=== PATIENT | female | born 1945 | race Two or more races ===

== ENCOUNTER 2016-10-08 10:01 | Emergency (ER) | payer MEDICARE, OTHER ==
[~2016-10-08] VITALS: Ht 162.6 cm; Wt 66.7 kg
[2016-10-08] MEDS ORDERED: KEFLEX500 MG ORAL (10:32)
[2016-10-08 10:43] VITALS: BP 135/75
--- NOTE | 2016-10-08 13:20 | Emergency Room Report ---
History of Present Illness General Chief Complaint: Eye Problems Source: Patient Present Illness HPI 70-year-old female presents to ED for evaluation. Patient states there is some swelling of her right eyelid and redness to the surrounding area. Started yesterday. Pain is sharp, 7/10, nonradiating. Denies any photophobia or blurry vision. Denies any discharge. No other aggravating relieving factors. Denies any other associated symptoms Allergies: Uncoded Allergies: CODEINE,ASPIRIN, (Allergy, Unknown, 10/08/16) Patient History Past Medical History: GERD, psych hx Past Surgical History: none Pertinent Family History: none Social History: Denies: alcohol use, drug use, smoking Now: No Immunizations: UTD Reviewed Nursing Documentation: PMH: Agreed, PSxH: Agreed Nursing Documentation-PMH Past Medical History: No History, Except For Hx Cardiac Problems: Yes Hx Hypertension: No Hx Pacemaker: No - hypothroidism , left knee replacement,hysterectomy Hx Diabetes: No - pre dm Hx Cancer: No Hx Gastrointestinal Problems: Yes - gerd History Of Psychiatric Problem: Yes - Anxiety and depression Review of Systems All Other Systems: negative except mentioned in HPI Physical Exam Vital Signs Date Time Temp Pulse Resp B/P Pulse Ox O2 Delivery O2 Flow Rate FiO2 10/08/16 10:08 97.0 71 18 103/63 97 Room Air Sp02 EP Interpretation: reviewed, normal General Appearance: no apparent distress, alert, GCS 15, non-toxic Head: normocephalic Eyes: right eye lid inflammation - R lower eyelid erythematous/swollen, bilateral eye PERRL, bilateral eye normal inspection ENT: hearing grossly normal, normal pharynx, no angioedema, normal voice, TMs + canals normal Neck: normal inspection Respiratory: normal inspection Cardiovascular #1: normal inspection Gastrointestinal: normal inspection Rectal: deferred Genitourinary: no CVA tenderness Musculoskeletal: normal inspection Neurologic: alert, oriented x3, responsive, motor strength/tone normal, sensory intact, speech normal Psychiatric: normal inspection Skin: other - erythema/induration to R lower eyelid, extending towards R side of nose Lymphatic: normal inspection Medical Decision Making Diagnostic Impression: Primary Impression: Facial cellulitis ER Course Hospital Course 70-year-old female presents to ED with redness, swelling to side of face Differential diagnoses include: Cellulitis, dermatitis, insect bite, abscess Clinical course Patient placed on stretcher. After initial history, physical exam reveals an elderly female in no acute distress. On exam there is swelling and erythema to the right lower eyelid. There is extension of that erythema towards the right side of the nose. Consistent with cellulitis. no ocular involvement. Recommend warm compresses but we will treat with antibiotics Diagnosis - facial cellulitis stable and discharged to home with prescription for Keflex. Instructed to followup with PMD. Instructed return to ED if symptoms recur or worsen Chest X-Ray Diagnostic Results Chest X-Ray Ordered: No Last Vital Signs Date Time Temp Pulse Resp B/P Pulse Ox O2 Delivery O2 Flow Rate FiO2 10/08/16 10:45 85 16 145/75 98 Room Air 10/08/16 10:43 98.5 Status: improved Disposition: HOME, SELF-CARE Condition: Stable Scripts Cephalexin* (KEFLEX*) 500 Mg Capsule 500 MG ORAL Q6H, #28 CAP 0 Refills Prov: JERAD CHONG M.D. 10/08/16 Referrals: NON PHYSICIAN (PCP) Patient Instructions: Cellulitis, [id number] JERAD CHONG M.D. Oct 08, 2016 13:20
== END 2016-10-08 10:51 | disposition home or self-care (01) ==
LOC: EMR 10:39
DX: L03.211 Cellulitis of face (principal); H00.032 Abscess of right lower eyelid; Z88.6 Allergy status to analgesic agent
CPT/HCPCS: 99283

== ENCOUNTER 2020-01-06 09:51 | Inpatient (IN) | payer MEDICARE, OTHER ==
[~2020-01-06] VITALS: Ht 157.5 cm; Wt 66.0 kg
[~2020-01-06 09:51] MED LIST: DEXILANT30 MG PO; GLUCOPHAGE500 MG PO; JANUMET 50-5001 EACH PO; KEFLEX500 MG ORAL; LEXAPRO20 MG PO; LIPITOR80 MG PO; METOPRO; METOPROLOL TART25 MG PO; METROPOLOL; PREMARIN VAG CR45 GM PV; SYNTHROID50 MCG PO
[2020-01-06] MEDS ORDERED: FLOMAX0.4 MG ORAL (10:05)
[2020-01-06] MEDS ORDERED: CYMBALTA60 MG ORAL (10:05)
[2020-01-06] MEDS ORDERED: GABAPENTIN100 MG ORAL (10:05)
[2020-01-06] MEDS ORDERED: PANTOPRAZOLE SO40 MG ORAL (10:06)
[2020-01-06] MEDS ORDERED: SINGULAIR10 MG ORAL (10:06)
[2020-01-06] MEDS ORDERED: ALLEGRA-D 24 H1 EACH PO (10:08)
[2020-01-06 10:10] VITALS: BP 138/72
[2020-01-06 10:23] VITALS: BP 138/72
[2020-01-06] MEDS ORDERED: Morphine Sulfate 2mg/ml Inj(IV/IM USE ONLY) IVP ONE (10:45)
[2020-01-06] MEDS ORDERED: Ketorolac 30mg Inj IV ONE (10:45)
--- NOTE | 2020-01-06 10:51 | Emergency Room Report ---
History of Present Illness General Chief Complaint: Abdominal Pain Source: Patient Present Illness HPI Disclaimer: Please note that this report is being documented using [employer] technology. This can lead to erroneous entry secondary to incorrect interpretation by the dictating instrument. HPI: 74-year-old female history of diabetes, hypertension, presented from home due to right flank pain and hematuria. She states she has had abdominal pain with right flank pain for the past 24 hours or so. Associated with hematuria. This is a correction from triage she does not have hematochezia however blood in the urine. Associated with painful urination. She denies any fevers nausea or vomiting. She has no history of kidney stones. Pain is about 10 out of 10. PMH: Hypertension, diabetes, arthritis Allergies: Coded Allergies: ASPIRIN (Verified Allergy, Unknown, 05/05/17) CODEINE (Verified Allergy, Unknown, 05/05/17) Uncoded Allergies: CODEINE,ASPIRIN, (Allergy, Unknown, 10/08/16) COVID-19 Screening Contact w/high risk pt: No Experienced COVID-19 symptoms?: No COVID-19 Testing performed JOINT FINISHER: No Patient History Last Menstrual Period: na Reviewed Nursing Documentation: PMH: Agreed; PSxH: Agreed Nursing Documentation-PMH Past Medical History: No History, Except For Hx Cardiac Problems: Yes Hx Hypertension: No Hx Pacemaker: No - hypothroidism , left knee replacement,hysterectomy Hx Diabetes: No - pre dm Hx Cancer: No Hx Gastrointestinal Problems: Yes - gerd Review of Systems All Other Systems: negative except mentioned in HPI Physical Exam Vital Signs Date Time Temp Pulse Resp B/P (MAP) Pulse Ox O2 Delivery O2 Flow Rate FiO2 01/06/20 09:54 98.4 82 20 138/72 (94) 96 Room Air Sp02 EP Interpretation: reviewed, normal General Appearance: well appearing, no apparent distress Head: normocephalic, atraumatic Eyes: bilateral eye PERRL, bilateral eye EOMI ENT: hearing grossly normal, moist mucus membranes Neck: full range of motion, supple Respiratory: lungs clear, normal breath sounds, no rhonchi, no respiratory distress, no retraction, no wheezing Cardiovascular #1: normal peripheral pulses, regular rate, rhythm, no murmur Gastrointestinal: non tender, soft, non-distended, no guarding Genitourinary: CVA tenderness (R) Neurologic: alert, oriented x3, no focal defects Skin: normal color, warm/dry Medical Decision Making Diagnostic Impression: Primary Impression: Acute pyelonephritis ER Course MDM: Patient presents with right flank pain. Differential included not limited to kidney stone, pyelonephritis, UTI, colitis, diverticulitis to name a few Clinical course-IV inserted laboratory studies were sent, IV fluids given, CT scan ordered. Laboratory studies demonstrated mild leukocytosis. Urinalysis consistent with UTI. CT scan of the abdomen pelvis demonstrated right-sided hydronephrosis, but no obstructive stone noted. My plan at this point is to admit patient to medical floor for further treatment and observation IV antibiotics. Labs - Laboratory Tests Test 01/06/20 10:20 White Blood Count 11.3 K/UL (4.8-10.8) H Red Blood Count 4.02 M/UL (4.20-5.40) L Hemoglobin 12.4 G/DL (12.0-16.0) Hematocrit 35.6 % (37.0-47.0) L Mean Corpuscular Volume 89 FL (80-99) Mean Corpuscular Hemoglobin 30.9 PG (27.0-31.0) Mean Corpuscular Hemoglobin Concent 34.9 G/DL (32.0-36.0) Red Cell Distribution Width 12.1 % (11.6-14.8) Platelet Count 177 K/UL (150-450) Mean Platelet Volume 9.1 FL (6.5-10.1) Neutrophils (%) (Auto) 73.2 % (45.0-75.0) Lymphocytes (%) (Auto) 18.2 % (20.0-45.0) L Monocytes (%) (Auto) 7.9 % (1.0-10.0) Eosinophils (%) (Auto) 0.2 % (0.0-3.0) Basophils (%) (Auto) 0.4 % (0.0-2.0) Prothrombin Time 10.0 SEC (9.30-11.50) Prothrombin Time INR 0.9 (0.9-1.1) Activated Partial Thromboplast Time 26 SEC (23-33) Urine Color Red Urine Appearance Turbid Urine pH 7 (4.5-8.0) Urine Specific [place] 1.015 (1.005-1.035) Urine Protein 4+ (NEGATIVE) H Urine Glucose (UA) Negative (NEGATIVE) Urine Ketones Negative (NEGATIVE) Urine Blood 5+ (NEGATIVE) H Urine Nitrite Negative (NEGATIVE) Urine Bilirubin Negative (NEGATIVE) Urine Urobilinogen Normal MG/DL (0.0-1.0) Urine Leukocyte Esterase 3+ (NEGATIVE) H Urine RBC Tntc /HPF (0 - 2) H Urine WBC Tntc /HPF (0 - 2) H Urine Squamous Epithelial Cells Few /LPF (NONE/OCC) Urine Bacteria Few /HPF (NONE) Sodium Level 137 MMOL/L (136-145) Potassium Level 3.7 MMOL/L (3.5-5.1) Chloride Level 97 MMOL/L (98-107) L Carbon Dioxide Level 27 MMOL/L (21-32) Anion Gap 13 mmol/L (5-15) Blood Urea Nitrogen 11 mg/dL (7-18) Creatinine 0.6 MG/DL (0.55-1.30) Estimated Glomerular Filtration Rate > 60 mL/min (>60) Glucose Level 136 MG/DL (74-106) H Calcium Level 9.6 MG/DL (8.5-10.1) Total Bilirubin 0.3 MG/DL (0.2-1.0) Aspartate Amino Transferase (AST) 19 U/L (15-37) Alanine Aminotransferase (ALT) 25 U/L (12-78) Alkaline Phosphatase 46 U/L (46-116) Total Protein 8.5 G/DL (6.4-8.2) H Albumin 4.5 G/DL (3.4-5.0) Globulin 4.0 g/dL Albumin/Globulin Ratio 1.1 (1.0-2.7) Lipase 101 U/L (73-393) On reevaluation: Pain controlled Plan-admission to the medical floor Last Vital Signs Date Time Temp Pulse Resp B/P (MAP) Pulse Ox O2 Delivery O2 Flow Rate FiO2 01/06/20 09:54 98.4 82 20 138/72 (94) 96 Room Air Status: improved Disposition: ADMITTED INPATIENT Condition: Serious Referrals: NOT CHOSEN IPA/,REFERRING (PCP) Mendoza Alexandre M.D. Jan 06, 2020 10:51
[2020-01-06 10:52] LABS: APPEARANCE,URINE TURBID; BILIRUBIN, URINE NEGATIVE (NEGATIVE); GLUCOSE, URINE (UA) NEGATIVE (NEGATIVE); KETONES,URINE NEGATIVE (NEGATIVE); LEUKOCYTE ESTERASE ,URINE 3+ (NEGATIVE); NITRITE,URINE NEGATIVE (NEGATIVE); PH,URINE 7 (4.5-8.0); PROTEIN,URINE 4+ (NEGATIVE); UROBILINOGEN,URINE NORMAL MG/DL (0.0-1.0)
[2020-01-06 10:57] LABS: COLOR,URINE RED
[2020-01-06 11:02] LABS: BASOPHILS % (AUTO) 0.4 % (0.0-2.0); EOSINOPHILS % (AUTO) 0.2 % (0.0-3.0); HEMATOCRIT 35.6 % (37.0-47.0); HEMOGLOBIN 12.4 G/DL (12.0-16.0); LYMPHOCYTES % (AUTO) 18.2 % (20.0-45.0); MEAN CORPUSCULAR VOLUME 89 FL (80-99); MONOCYTES % (AUTO) 7.9 % (1.0-10.0); NEUTROPHILS % (AUTO) 73.2 % (45.0-75.0); PLATELET COUNT 177 K/UL (150-450); RED BLOOD COUNT 4.02 M/UL (4.20-5.40); RED CELL DISTRIBUTION WIDTH 12.1 % (11.6-14.8); WHITE BLOOD COUNT 11.3 K/UL (4.8-10.8)
[2020-01-06 11:09] LABS: INR 0.9 (0.9-1.1)
[2020-01-06] MEDS ORDERED: cefTRIAXone 1 GM in NS 55 ML IVPB ONE (11:15)
--- NOTE | 2020-01-06 11:29 | Diagnostic Imaging Report ---
EXAM: CT Abdomen and Pelvis Without Intravenous Contrast CLINICAL HISTORY: PAIN TECHNIQUE: Axial computed tomography images of the abdomen and pelvis without intravenous contrast. CTDI is 5.3 mGy and DLP is 267.9 mGy-cm. One or more of the following dose reduction techniques were used: automated exposure control, adjustment of the mA and/or kV according to patient size, use of iterative reconstruction technique. COMPARISON: None FINDINGS: Lung bases: Mild bibasilar atelectasis. Heart: Mild cardiomegaly. Mitral annular calcifications. ABDOMEN: Liver: Punctate calcification in the left liver. Gallbladder and bile ducts: Unremarkable. No calcified stones. No ductal dilation. Pancreas: Unremarkable. No ductal dilation. Spleen: Small splenule. Adrenals: Unremarkable. No mass. Kidneys and ureters: Severe right hydronephrosis and prominent right extrarenal pelvis. No obstructing stone identified. No significant hydroureter. However, there does appear to be mild right periureteral fat stranding. Findings may represent UPJ Obstruction, but infection is not excluded. No hydronephrosis or stone on the left. Stomach and bowel: Evaluation of the stomach is limited by underdistention. No bowel obstruction. Mild diverticulosis without evidence of diverticulitis. Underdistended sigmoid colon and descending colon limits evaluation. PELVIS: Appendix: Normal appendix. Bladder: Wall thickening of the bladder with surrounding fat stranding may represent cystitis. Please correlate with urinalysis. No stones. Reproductive: Prior hysterectomy. ABDOMEN and PELVIS: Intraperitoneal space: Unremarkable. No free air. No significant fluid collection. Bones/joints: Scoliosis. Chronic appearing compression deformity of the L1 vertebral body. Degenerative changes of the spine. Hemangioma in the L4 vertebral body. No dislocation. Soft tissues: Small fat-containing umbilical hernia. Injection changes in the gluteal soft tissues. Vasculature: Atherosclerotic changes of the vasculature. No aortic aneurysm. Lymph nodes: Unremarkable. No enlarged lymph nodes. IMPRESSION: 1. Severe right hydronephrosis and prominent right extrarenal pelvis. No obstructing stone identified. No significant hydroureter. However, there does appear to be mild right periureteral fat stranding. Findings may represent UPJ obstruction, but infection is not excluded. 2. Wall thickening of the bladder with surrounding fat stranding may represent cystitis. Please correlate with urinalysis.
[2020-01-06 12:16] LABS: ANION GAP 13 mmol/L (5-15); BLOOD UREA NITROGEN 11 mg/dL (7-18); CALCIUM 9.6 MG/DL (8.5-10.1); CARBON DIOXIDE 27 MMOL/L (21-32); CHLORIDE 97 MMOL/L (98-107); CREATININE 0.6 MG/DL (0.55-1.30); POTASSIUM 3.7 MMOL/L (3.5-5.1); SODIUM 137 MMOL/L (136-145)
[2020-01-06 12:29] LABS: ALANINE AMINOTRANSFERASE 25 U/L (12-78); ALBUMIN 4.5 G/DL (3.4-5.0); ALBUMIN/GLOBULIN RATIO 1.1 (1.0-2.7); ALKALINE PHOSPHATASE 46 U/L (46-116); ASPARTATE AMINO TRANSFERASE 19 U/L (15-37); BILIRUBIN,TOTAL 0.3 MG/DL (0.2-1.0)
[2020-01-06] MEDS ORDERED: NS 250 ML IVPB ONE (13:30)
--- NOTE | 2020-01-06 15:59 | History and Physical ---
History of Present Illness General Date patient seen: Jan 06, 2020 Time patient seen: 13:30 Reason for Hospitalization: Abdominal Pain Present Illness HPI 74F with PMHx of Non-insulin dependent T2DM, HTN, HLD, and hypothyroidism presents with dysuria and right flank pain. Patient states that she was in good health till yesterday when she began to have increasing pain in her lower abdomen. She also noticed some difficulty urinating and had a burning sensation. She denies any fevers, chills, or changes in bowel movements. She does note that her urine was dark and possibly blood-tinged. She denies any headaches, nausea, or vomiting. She feels a bit dehydrated. She denies any tobacco or etoh use. She lives with her family locally. Allergies: Coded Allergies: ASPIRIN (Verified Allergy, Unknown, 05/05/17) CODEINE (Verified Allergy, Unknown, 05/05/17) Uncoded Allergies: CODEINE,ASPIRIN, (Allergy, Unknown, 10/08/16) COVID-19 Screening Contact w/high risk pt: No Experienced COVID-19 symptoms?: No Medication History Scheduled Atorvastatin (Lipitor), 20 MG PO DAILY, (Reported) Cephalexin* (Keflex*), 500 MG ORAL Q6H Dexlansoprazole (Dexilant), 30 MG PO DAILY, (Reported) Duloxetine Hcl* (Cymbalta*), 60 MG ORAL DAILY, (Reported) Escitalopram Oxalate* (Lexapro*), 20 MG PO DAILY, (Reported) Fexofenadine/Pseudoephedrine (Angela-D 24 Hour Tablet), 1 EACH PO DAILY, ( Reported) Gabapentin* (Gabapentin*), 300 MG ORAL DAILY, (Reported) Levothyroxine Sodium (Synthroid), 37.5 MCG PO DAILY, (Reported) Metformin Hcl* (Glucophage*), 500 MG PO BID, (Reported) Metformin Hcl* (Glucophage*), 500 MG PO TID, (Reported) Metoprolol Tartrate* (Metoprolol Tartrate*), 25 MG PO DAILY, (Reported) Montelukast Sodium* (Singulair*), 10 MG ORAL DAILY, (Reported) Pantoprazole* (Pantoprazole*), 40 MG ORAL DAILY, (Reported) Tamsulosin HCl (Flomax), 0.4 MG ORAL DAILY, (Reported) Miscellaneous Medications Estrogens Conjugated (Premarin), 45 GM PV, (Reported) Sitagliptin Phos/Metformin Hcl (Janumet 50-500 Mg Tablet), 1 EACH PO, (Reported) Patient History History Provided By: Patient Healthcare decision maker Daughter Resuscitation status Full Code Advanced Directive on File Family History Family History: FH: hypertension Review of Systems Constitutional: Denies: no symptoms, see HPI, chills, sweats, fever, malaise, weakness, other Eye: Denies: no symptoms, see HPI, eye pain, blurred vision, tearing, double vision, nose pain, nose congestion, acuity changes, discharge, other ENT: Denies: no symptoms, see HPI, ear pain, ear discharge, nose pain, nose congestion, throat pain, throat swelling, mouth pain, hearing loss, nasal discharge, other Respiratory: Denies: no symptoms, see HPI, cough, orthopnea, shortness of breath, stridor, wheezing, AYERS, sputum, other Cardiovascular: Denies: no symptoms, see HPI, chest pain, edema, palpitations, syncope, PND, other Gastrointestinal: Reports: abdominal pain Genitourinary: Reports: dysuria Musculoskeletal: Denies: no symptoms, see HPI, back pain, gout, joint pain, joint swelling, muscle pain, muscle stiffness, other Skin: Denies: no symptoms, see HPI, rash, change in color, change in hair/nails , dryness, lesions, other Psychiatric: Denies: no symptoms, see HPI, prior hx, anxiety, depressed feelings, emotional problems, SI, HI, hallucinations, other Neurological: Denies: no symptoms, see HPI, headache, numbness, paresthesia, seizure, tingling, tremors, focal weakness, syncope, dizziness, other Endocrine: Denies: no symptoms, see HPI, excessive sweating, flushing, intolerance to temperature, increased thirst, increased urine, unexplained weight loss, other Hematologic/Lymphatic: Denies: no symptoms, see HPI, anemia, blood clots, easy bleeding, easy bruising, swollen glands, diathesis, other Physical Exam General Appearance: no apparent distress, alert HEENT: normocephalic, atraumatic Neck: non-tender, supple Respiratory/Chest: lungs clear, normal breath sounds Cardiovascular/Chest: normal rate, regular rhythm Abdomen: normal bowel sounds, tender, other - Suprapubic tenderness, R CVA Tenderness Extremities: normal range of motion, other Skin Exam: warm/dry Neurologic: lead software qa engineer II-XII grossly normal Last 24 Hour Vital Signs Date Time Temp Pulse Resp B/P (MAP) Pulse Ox O2 Delivery O2 Flow Rate FiO2 01/06/20 13:58 98.0 82 18 130/70 98 Room Air 01/06/20 11:17 98.4 01/06/20 11:17 98.4 01/06/20 10:23 98.4 78 20 138/72 96 Room Air 01/06/20 10:10 82 20 Room Air 01/06/20 10:10 98.4 20 138/72 96 Room Air 01/06/20 09:54 98.4 82 20 138/72 (94) 96 Room Air Laboratory Tests Test 01/06/20 10:20 White Blood Count 11.3 K/UL (4.8-10.8) H Red Blood Count 4.02 M/UL (4.20-5.40) L Hemoglobin 12.4 G/DL (12.0-16.0) Hematocrit 35.6 % (37.0-47.0) L Mean Corpuscular Volume 89 FL (80-99) Mean Corpuscular Hemoglobin 30.9 PG (27.0-31.0) Mean Corpuscular Hemoglobin Concent 34.9 G/DL (32.0-36.0) Red Cell Distribution Width 12.1 % (11.6-14.8) Platelet Count 177 K/UL (150-450) Mean Platelet Volume 9.1 FL (6.5-10.1) Neutrophils (%) (Auto) 73.2 % (45.0-75.0) Lymphocytes (%) (Auto) 18.2 % (20.0-45.0) L Monocytes (%) (Auto) 7.9 % (1.0-10.0) Eosinophils (%) (Auto) 0.2 % (0.0-3.0) Basophils (%) (Auto) 0.4 % (0.0-2.0) Prothrombin Time 10.0 SEC (9.30-11.50) Prothromb Time International Ratio 0.9 (0.9-1.1) Activated Partial Thromboplast Time 26 SEC (23-33) Urine Color Red Urine Appearance Turbid Urine pH 7 (4.5-8.0) Urine Specific [place] 1.015 (1.005-1.035) Urine Protein 4+ (NEGATIVE) H Urine Glucose (UA) Negative (NEGATIVE) Urine Ketones Negative (NEGATIVE) Urine Blood 5+ (NEGATIVE) H Urine Nitrite Negative (NEGATIVE) Urine Bilirubin Negative (NEGATIVE) Urine Urobilinogen Normal MG/DL (0.0-1.0) Urine Leukocyte Esterase 3+ (NEGATIVE) H Urine RBC Tntc /HPF (0 - 2) H Urine WBC Tntc /HPF (0 - 2) H Urine Squamous Epithelial Cells Few /LPF (NONE/OCC) Urine Bacteria Few /HPF (NONE) Sodium Level 137 MMOL/L (136-145) Potassium Level 3.7 MMOL/L (3.5-5.1) Chloride Level 97 MMOL/L (98-107) L Carbon Dioxide Level 27 MMOL/L (21-32) Anion Gap 13 mmol/L (5-15) Blood Urea Nitrogen 11 mg/dL (7-18) Creatinine 0.6 MG/DL (0.55-1.30) Estimat Glomerular Filtration Rate > 60 mL/min (>60) Glucose Level 136 MG/DL (74-106) H Calcium Level 9.6 MG/DL (8.5-10.1) Total Bilirubin 0.3 MG/DL (0.2-1.0) Aspartate Amino Transf (AST/SGOT) 19 U/L (15-37) Alanine Aminotransferase (ALT/SGPT) 25 U/L (12-78) Alkaline Phosphatase 46 U/L (46-116) Total Protein 8.5 G/DL (6.4-8.2) H Albumin 4.5 G/DL (3.4-5.0) Globulin 4.0 g/dL Albumin/Globulin Ratio 1.1 (1.0-2.7) Lipase 101 U/L (73-393) Height (Feet): 5 Height (Inches): 2.00 Weight (Pounds): 134 Medications Current Medications Medications (Trade) Dose Ordered Sig/Ida Route PRN Reason Start Time Stop Time Status Last Admin Dose Admin Acetaminophen (Tylenol) 650 mg Q4H PRN ORAL Mild Pain (Pain Scale 1-3) 01/06/20 14:30 02/05/20 14:29 Atorvastatin Calcium (Lipitor) 20 mg BEDTIME ORAL 01/06/20 21:00 04/05/20 20:59 Ceftriaxone Sodium 2 gm/ Dextrose 55 ml @ 110 mls/hr Q24H IVPB 01/07/20 14:00 01/14/20 13:59 Dextrose (Dextrose 50%) 25 ml Q30M PRN IV Hypoglycemia 01/06/20 14:30 04/05/20 14:29 Dextrose (Dextrose 50%) 50 ml Q30M PRN IV Hypoglycemia 01/06/20 14:30 04/05/20 14:29 Duloxetine HCl (Cymbalta) 60 mg DAILY ORAL 01/07/20 09:00 04/06/20 08:59 Gabapentin (Neurontin) 300 mg BEDTIME ORAL 01/06/20 21:00 02/05/20 20:59 Insulin Aspart (NovoLOG) BEFORE MEALS AND HS SUBQ 01/06/20 16:30 04/05/20 16:29 Ketorolac Tromethamine (Toradol 30mg) 15 mg Q6H PRN IV Breakthrough Pain 01/06/20 14:30 01/11/20 14:29 Levothyroxine Sodium (Synthroid) 37.5 mcg DAILY@0630 ORAL 01/07/20 06:30 02/06/20 06:29 Pantoprazole (Protonix) 40 mg DAILY ORAL 01/07/20 09:00 02/06/20 08:59 Polyethylene Glycol (Miralax) 17 gm HSPRN PRN ORAL Constipation 01/06/20 14:30 02/05/20 14:29 Sodium Chloride 1,000 ml @ 200 mls/hr Q5H IVLG 01/06/20 15:24 01/06/20 20:00 Assessment/Plan Problem List: (1) Hypertension ICD Codes: I10 - Essential (primary) hypertension SNOMED: 69869988 (2) Diabetes mellitus ICD Codes: E11.9 - Type 2 diabetes mellitus without complications SNOMED: 22855047 (3) Hypothyroid ICD Codes: E03.9 - Hypothyroidism, unspecified SNOMED: 19403939 (4) Diabetic neuropathy ICD Codes: E11.40 - Type 2 diabetes mellitus with diabetic neuropathy, unspecified SNOMED: 31502606, 992416439, 609692104 (5) Pyelonephritis ICD Codes: N12 - Tubulo-interstitial nephritis, not specified as acute or chronic SNOMED: 03186293 (6) GERD (gastroesophageal reflux disease) ICD Codes: K21.9 - Gastro-esophageal reflux disease without esophagitis SNOMED: 503179948 Status: stable Assessment/Plan: 74F with PMHx of Non-insulin dependent T2DM, HTN, HLD, and GERD admitted for pyelonephritis. #Pyelonephritis R CVA tenderness and UA consistent with pyelonephritis. CT abdomen with hydronephrosis, with stranding but no stone causing obstruction. - Admit to obs med surg - Encourage PO fluids, IV NS 1.5L - UC and BC pending - Abx - Rocephen #Non-insulin dependent T2DM - SSI while inpatient - Resume metformin on dc #HTN - Continue home metoprolol #HLD - Continue Statin #Hypothyroidism - Continue Synthyroid #Diabetic Neuropathy - Continue cymalta and gabapentin #GERD - Continue ppi FEN: -Carb consistent - SCDs Full Code - Patient stated that she would like all resuscitative measures - including CPR, electric shocks and intubation. Discussed care with daughter ( [place]) who is also aware. Total time spent with patient 30 minutes and time reviewing chart coordinating care with nursing staff 40min. 16 min spent with patient on ACP. Time of entry does not reflect time of encounter. Jocelynn Richard M.D. Jan 06, 2020 15:59
[2020-01-06 16:30] LABS: BASOPHILS % (AUTO) 0.6 % (0.0-2.0); HEMATOCRIT 32.2 % (37.0-47.0); HEMOGLOBIN 10.9 G/DL (12.0-16.0); LYMPHOCYTES % (AUTO) 20.6 % (20.0-45.0); MEAN CORPUSCULAR VOLUME 91 FL (80-99); MONOCYTES % (AUTO) 7.6 % (1.0-10.0); NEUTROPHILS % (AUTO) 71.2 % (45.0-75.0); PLATELET COUNT 163 K/UL (150-450); RED BLOOD COUNT 3.53 M/UL (4.20-5.40); WHITE BLOOD COUNT 9.2 K/UL (4.8-10.8)
[2020-01-06] MEDS: Ketorolac 30mg Inj IV PRN ×2 (16:39→22:29)
[2020-01-06 16:52] LABS: ANION GAP 8 mmol/L (5-15); BLOOD UREA NITROGEN 10 mg/dL (7-18); CALCIUM 8.7 MG/DL (8.5-10.1); CARBON DIOXIDE 29 MMOL/L (21-32); CHLORIDE 100 MMOL/L (98-107); CREATININE 0.6 MG/DL (0.55-1.30); SODIUM 137 MMOL/L (136-145)
[2020-01-06] MEDS: NovoLOG Insulin Flexpen SUBQ SCH ×2 (17:29→20:46)
[2020-01-06 20:00] VITALS: BP 119/58
[2020-01-06] MEDS: Atorvastatin 20mg tab ORAL SCH (20:45)
[2020-01-07 04:00] VITALS: BP 129/66
[2020-01-07] MEDS: Levothyroxine 25mcg tab ORAL SCH (06:03)
[2020-01-07] MEDS: NovoLOG Insulin Flexpen SUBQ SCH ×4 (06:13→21:00)
[2020-01-07 08:00] VITALS: BP 125/65
--- NOTE | 2020-01-07 08:11 | General Progress Note ---
Assessment/Plan Status: stable Assessment/Plan: 74F with PMHx of Non-insulin dependent T2DM, HTN, HLD, and GERD admitted for pyelonephritis. #Pyelonephritis R CVA tenderness and UA consistent with pyelonephritis. CT abdomen with hydronephrosis, with stranding but no stone causing obstruction. - cont to monitor on med surg - Encourage PO fluids, s/p IV NS 1.5L - UC and BC pending - Abx - Rocephen - ID consulted, recs appreciated #Hydronephrosis likely 2/2 to above, CT abd on admission with no stones appreciated - Obtain Renal US - cont management as above - monitor I's & O's #Non-insulin dependent T2DM - SSI while inpatient - Resume metformin on dc #HTN - Continue home metoprolol #HLD - Continue Statin #Hypothyroidism - Continue Synthyroid #Diabetic Neuropathy - Continue cymalta and gabapentin #GERD - Continue ppi FEN: -Carb consistent - SCDs Full Code Time spent on encounter: 36 mins, 25 mins on counseling, coordination of care. POC d/w at length w/pt's dtr, [place], RN, and ID. Additional 18 mins spent on chart review, previous hospital encounters, review of labs, H&P, progress notes, radiographic findings. Time of note doesn't reflect time of encounter. Subjective Allergies: Coded Allergies: ASPIRIN (Verified Allergy, Unknown, 05/05/17) CODEINE (Verified Allergy, Unknown, 05/05/17) Uncoded Allergies: CODEINE,ASPIRIN, (Allergy, Unknown, 10/08/16) Subjective No acute events overnight. Pt notes right sided flank pain improved but still present. No f/c, N/V, CP, SOB , abd pain at this time. Objective Last 24 Hour Vital Signs Date Time Temp Pulse Resp B/P (MAP) Pulse Ox O2 Delivery O2 Flow Rate FiO2 01/07/20 04:00 98.4 67 20 129/66 (87) 98 01/06/20 23:01 98.2 01/06/20 22:59 98.2 01/06/20 21:35 79 01/06/20 21:31 Room Air 01/06/20 21:29 82 01/06/20 21:25 73 73 01/06/20 20:00 98.2 77 20 119/58 (78) 98 01/06/20 14:56 Room Air 01/06/20 13:58 98.0 82 18 130/70 98 Room Air 01/06/20 11:17 98.4 01/06/20 11:17 98.4 01/06/20 10:23 98.4 78 20 138/72 96 Room Air 01/06/20 10:10 82 20 Room Air 01/06/20 10:10 98.4 20 138/72 96 Room Air 01/06/20 09:54 98.4 82 20 138/72 (94) 96 Room Air Intake and Output 01/06/20 01/07/20 19:00 07:00 Intake Total 800 ml Balance 800 ml Intake IV Total 800 ml # Voids 1 Laboratory Tests 01/06/20 10:20: White Blood Count 11.3H, Red Blood Count 4.02L, Hemoglobin 12.4, Hematocrit 35.6L, Mean Corpuscular Volume 89, Mean Corpuscular Hemoglobin 30.9, Mean Corpuscular Hemoglobin Concent 34.9, Red Cell Distribution Width 12.1, Platelet Count 177, Mean Platelet Volume 9.1, Neutrophils (%) (Auto) 73.2, Lymphocytes (% ) (Auto) 18.2L, Monocytes (%) (Auto) 7.9, Eosinophils (%) (Auto) 0.2, Basophils (%) (Auto) 0.4, Prothrombin Time 10.0, Prothromb Time International Ratio 0.9, Activated Partial Thromboplast Time 26, Urine Color Red, Urine Appearance Turbid , Urine pH 7, Urine Specific [place] 1.015, Urine Protein 4+H, Urine Glucose (UA ) Negative, Urine Ketones Negative, Urine Blood 5+H, Urine Nitrite Negative, Urine Bilirubin Negative, Urine Urobilinogen Normal, Urine Leukocyte Esterase 3+ H, Urine RBC TntcH, Urine WBC TntcH, Urine Squamous Epithelial Cells Few, Urine Bacteria Few, Sodium Level 137, Potassium Level 3.7, Chloride Level 97L, Carbon Dioxide Level 27, Anion Gap 13, Blood Urea Nitrogen 11, Creatinine 0.6, Estimat Glomerular Filtration Rate > 60, Glucose Level 136H, Calcium Level 9.6, Total Bilirubin 0.3, Aspartate Amino Transf (AST/SGOT) 19, Alanine Aminotransferase ( ALT/SGPT) 25, Alkaline Phosphatase 46, Total Protein 8.5H, Albumin 4.5, Globulin 4.0, Albumin/Globulin Ratio 1.1, Lipase 101 01/06/20 16:00: White Blood Count 9.2, Red Blood Count 3.53L, Hemoglobin 10.9L, Hematocrit 32.2L , Mean Corpuscular Volume 91, Mean Corpuscular Hemoglobin 30.8, Mean Corpuscular Hemoglobin Concent 33.8, Red Cell Distribution Width 13.0, Platelet Count 163, Mean Platelet Volume 10.1, Neutrophils (%) (Auto) 71.2, Lymphocytes ( %) (Auto) 20.6, Monocytes (%) (Auto) 7.6, Eosinophils (%) (Auto) 0.0, Basophils (%) (Auto) 0.6, Sodium Level 137, Potassium Level 4.0, Chloride Level 100, Carbon Dioxide Level 29, Anion Gap 8, Blood Urea Nitrogen 10, Creatinine 0.6, Estimat Glomerular Filtration Rate > 60, Glucose Level 158H, Calcium Level 8.7, C-Reactive Protein, Quantitative 4.1H Height (Feet): 5 Height (Inches): 2.00 Weight (Pounds): 132 Objective General Appearance: no apparent distress, alert HEENT: normocephalic, atraumatic, EOMi, MMM Neck: non-tender, supple Respiratory/Chest: lungs clear, normal breath sounds Cardiovascular/Chest: normal rate, regular rhythm Abdomen: normal bowel sounds, no guarding/rebound or distension, + R CVA Tenderness Extremities: normal range of motion, other Skin Exam: warm/dry Neurologic: overlay plastician II-XII grossly normal Michel Goddard M.D. Jan 07, 2020 08:11
[2020-01-07 09:44] LABS: BASOPHILS % (AUTO) 0.6 % (0.0-2.0); EOSINOPHILS % (AUTO) 0.7 % (0.0-3.0); HEMATOCRIT 33.3 % (37.0-47.0); HEMOGLOBIN 11.1 G/DL (12.0-16.0); LYMPHOCYTES % (AUTO) 31.7 % (20.0-45.0); MEAN CORPUSCULAR VOLUME 90 FL (80-99); MONOCYTES % (AUTO) 6.7 % (1.0-10.0); NEUTROPHILS % (AUTO) 60.4 % (45.0-75.0); PLATELET COUNT 173 K/UL (150-450); RED BLOOD COUNT 3.69 M/UL (4.20-5.40); RED CELL DISTRIBUTION WIDTH 12.5 % (11.6-14.8); WHITE BLOOD COUNT 7.8 K/UL (4.8-10.8)
[2020-01-07 10:12] LABS: ANION GAP 9 mmol/L (5-15); BLOOD UREA NITROGEN 13 mg/dL (7-18); CALCIUM 8.9 MG/DL (8.5-10.1); CARBON DIOXIDE 27 MMOL/L (21-32); CHLORIDE 101 MMOL/L (98-107); CREATININE 0.5 MG/DL (0.55-1.30); POTASSIUM 4.3 MMOL/L (3.5-5.1); SODIUM 137 MMOL/L (136-145)
[2020-01-07] MEDS: Ketorolac 30mg Inj IV PRN ×2 (11:39→23:15)
[2020-01-07 12:00] VITALS: BP 119/68
--- NOTE | 2020-01-07 12:43 | Infectious Diseases Prog Note ---
Assessment/Plan Assessment/Plan Ful consult dictated: A) 1) uti/pyelonephritis 2) pmh noted 3) allergies - asa, codeine P) 1) ceftriaxone 2) check urine culture 3) thank you Subjective Allergies: Coded Allergies: ASPIRIN (Verified Allergy, Unknown, 05/05/17) CODEINE (Verified Allergy, Unknown, 05/05/17) Uncoded Allergies: CODEINE,ASPIRIN, (Allergy, Unknown, 10/08/16) Objective Last 24 Hour Vital Signs Date Time Temp Pulse Resp B/P (MAP) Pulse Ox O2 Delivery O2 Flow Rate FiO2 01/07/20 12:00 97.8 72 18 119/68 (85) 97 01/07/20 09:00 Room Air 01/07/20 08:00 98.1 69 18 125/65 (85) 98 01/07/20 04:00 98.4 67 20 129/66 (87) 98 01/06/20 23:01 98.2 01/06/20 22:59 98.2 01/06/20 21:35 79 01/06/20 21:31 Room Air 01/06/20 21:29 82 01/06/20 21:25 73 73 01/06/20 20:00 98.2 77 20 119/58 (78) 98 01/06/20 14:56 Room Air 01/06/20 13:58 98.0 82 18 130/70 98 Room Air Height (Feet): 5 Height (Inches): 2.00 Weight (Pounds): 132 Laboratory Tests Test 01/06/20 16:00 01/07/20 09:10 White Blood Count 9.2 K/UL (4.8-10.8) 7.8 K/UL (4.8-10.8) Red Blood Count 3.53 M/UL (4.20-5.40) L 3.69 M/UL (4.20-5.40) L Hemoglobin 10.9 G/DL (12.0-16.0) L 11.1 G/DL (12.0-16.0) L Hematocrit 32.2 % (37.0-47.0) L 33.3 % (37.0-47.0) L Mean Corpuscular Volume 91 FL (80-99) 90 FL (80-99) Mean Corpuscular Hemoglobin 30.8 PG (27.0-31.0) 30.0 PG (27.0-31.0) Mean Corpuscular Hemoglobin Concent 33.8 G/DL (32.0-36.0) 33.2 G/DL (32.0-36.0) Red Cell Distribution Width 13.0 % (11.6-14.8) 12.5 % (11.6-14.8) Platelet Count 163 K/UL (150-450) 173 K/UL (150-450) Mean Platelet Volume 10.1 FL (6.5-10.1) 8.5 FL (6.5-10.1) Neutrophils (%) (Auto) 71.2 % (45.0-75.0) 60.4 % (45.0-75.0) Lymphocytes (%) (Auto) 20.6 % (20.0-45.0) 31.7 % (20.0-45.0) Monocytes (%) (Auto) 7.6 % (1.0-10.0) 6.7 % (1.0-10.0) Eosinophils (%) (Auto) 0.0 % (0.0-3.0) 0.7 % (0.0-3.0) Basophils (%) (Auto) 0.6 % (0.0-2.0) 0.6 % (0.0-2.0) Sodium Level 137 MMOL/L (136-145) 137 MMOL/L (136-145) Potassium Level 4.0 MMOL/L (3.5-5.1) 4.3 MMOL/L (3.5-5.1) Chloride Level 100 MMOL/L (98-107) 101 MMOL/L (98-107) Carbon Dioxide Level 29 MMOL/L (21-32) 27 MMOL/L (21-32) Anion Gap 8 mmol/L (5-15) 9 mmol/L (5-15) Blood Urea Nitrogen 10 mg/dL (7-18) 13 mg/dL (7-18) Creatinine 0.6 MG/DL (0.55-1.30) 0.5 MG/DL (0.55-1.30) L Estimat Glomerular Filtration Rate > 60 mL/min (>60) > 60 mL/min (>60) Glucose Level 158 MG/DL (74-106) H 190 MG/DL (74-106) H Calcium Level 8.7 MG/DL (8.5-10.1) 8.9 MG/DL (8.5-10.1) C-Reactive Protein, Quantitative 4.1 mg/dL (0.00-0.90) H Current Medications Medications (Trade) Dose Ordered Sig/Ida Route PRN Reason Start Time Stop Time Status Last Admin Dose Admin Acetaminophen (Tylenol) 650 mg Q4H PRN ORAL Mild Pain (Pain Scale 1-3) 01/06/20 14:30 02/05/20 14:29 01/06/20 22:31 Atorvastatin Calcium (Lipitor) 20 mg BEDTIME ORAL 01/06/20 21:00 04/05/20 20:59 01/06/20 20:45 Ceftriaxone Sodium 2 gm/ Dextrose 55 ml @ 110 mls/hr Q24H IVPB 01/07/20 14:00 01/14/20 13:59 Dextrose (Dextrose 50%) 25 ml Q30M PRN IV Hypoglycemia 01/06/20 14:30 04/05/20 14:29 Dextrose (Dextrose 50%) 50 ml Q30M PRN IV Hypoglycemia 01/06/20 14:30 04/05/20 14:29 Duloxetine HCl (Cymbalta) 60 mg DAILY ORAL 01/07/20 09:00 04/06/20 08:59 01/07/20 08:34 Gabapentin (Neurontin) 300 mg BEDTIME ORAL 01/06/20 21:00 02/05/20 20:59 01/06/20 20:45 Insulin Aspart (NovoLOG) BEFORE MEALS AND HS SUBQ 01/06/20 16:30 04/05/20 16:29 01/06/20 20:46 Ketorolac Tromethamine (Toradol 30mg) 15 mg Q6H PRN IV Breakthrough Pain 01/06/20 14:30 01/11/20 14:29 01/07/20 11:39 Levothyroxine Sodium (Synthroid) 37.5 mcg DAILY@0630 ORAL 01/07/20 06:30 02/06/20 06:29 01/07/20 06:03 Pantoprazole (Protonix) 40 mg DAILY ORAL 01/07/20 09:00 02/06/20 08:59 01/07/20 08:34 Polyethylene Glycol (Miralax) 17 gm HSPRN PRN ORAL Constipation 01/06/20 14:30 02/05/20 14:29 Yonathan Thompson MD Jan 07, 2020 12:43
[2020-01-07] MEDS: cefTRIAXone 2 GM in D5W 55 ML IVPB SCH (13:07)
--- NOTE | 2020-01-07 15:04 | Diagnostic Imaging Report ---
Indication: Right flank pain Technique: Grayscale and duplex images of the kidneys, retroperitoneum, and bladder were obtained. Comparison: No comparison sonograms. Reference made to abdomen pelvis CT dated 01/06/2020 Findings: Right kidney measures 11.7 cm in length. Left kidney measures left cm in length. Both kidneys demonstrate normal echogenicity. There is mild to moderate right hydronephrosis. There is a prominent right extrarenal pelvis versus parapelvic cyst There is slight fullness of the left renal collecting system. Echogenic focus in the left renal sinus is noted, suspect artifactual as no calculi are seen on previous day's CT scan. A small left renal cyst is also. There are bilateral parapelvic cysts. Normal inferior vena cava. Bladder is normal. Impression: Mild to moderate right hydronephrosis, etiology not demonstrated, also reported on prior CT scan Prominent right extrarenal pelvis versus parapelvic cyst. Small left renal cyst
[2020-01-07 16:00] VITALS: BP 128/74
[2020-01-07] MEDS ORDERED: LORazepam 0.5mg tab ORAL PRN (16:45)
[2020-01-07 20:00] VITALS: BP 145/78
[2020-01-07] MEDS: Atorvastatin 20mg tab ORAL SCH (21:00)
[2020-01-07] MEDS: Miralax 17gm pkt ORAL PRN (22:02)
--- NOTE | 2020-01-07 22:29 | Consultation ---
DATE OF CONSULTATION: 01/07/2020 CONSULTING PHYSICIAN: Shai Hamlin MD. REFERRING PHYSICIAN: Dr. Marcy Goddard. REASON FOR CONSULTATION: Evaluation of hydronephrosis, pyelo. HISTORY OF PRESENT ILLNESS: This is a pleasant 74-year-old female. She came to the emergency room yesterday because of abdominal and flank pain. She was noted to have some CVA tenderness and positive UA, and was admitted for possible pyelonephritis. She also has a history of gross hematuria, which is now cleared. She has been on antibiotics. She states her flank pain has improved. She has some urinary frequency. Apparently, she has a history of "bladder lift" operation, which I imagine would be a cystocele repair. PAST MEDICAL HISTORY: Significant for above, also hypertension, diabetes, and arthritis. PAST SURGICAL HISTORY: As above. MEDICATIONS: Current medications in the hospital was reviewed. She is currently on Toprol, Ativan, Rocephin, Protonix, Cymbalta, Synthroid, Lipitor, Neurontin, Tylenol, and MiraLAX. ALLERGIES: Aspirin and codeine. SOCIAL HISTORY: She quit smoking. REVIEW OF SYSTEMS: As above. FAMILY HISTORY: Noncontributory. PHYSICAL EXAMINATION: GENERAL: A well-developed and well-nourished female, in no acute distress. VITAL SIGNS: Temperature is 97.2, blood pressure 128/74, pulse 70, respirations 21. HEENT: Normocephalic. NECK: Supple. ABDOMEN: Soft. BACK: There is very mild CVA tenderness on the right side. EXTREMITIES: No clubbing or cyanosis. LABORATORY DATA: BUN is 13, creatinine 0.5, and potassium 4.3. Her white count yesterday was 11.3, today is 7.8; hemoglobin 11.1. UA showed 4+ protein, too numerous to count rbc's, too numerous to count wbc's, few bacteria. I do not see urine culture on record. DIAGNOSTIC IMAGING STUDIES: The patient had a CT scan of the abdomen and pelvis. There was mention of severe right-sided hydronephrosis and prominent right extrarenal pelvis. There was no obstructing stone identified. No significant hydroureter. There was some mild periureteral fat stranding. There was some wall thickening of the bladder, concern for cystitis. The patient also had a renal ultrasound earlier today and on the ultrasound there was mild to moderate hydronephrosis. Also, right extrarenal pelvis versus parapelvic cyst and left renal cyst. IMPRESSION: 1. Right-sided hydronephrosis. 2. Possible pyelonephritis. 3. Pyuria. 4. Hematuria. 5. Proteinuria. 6. Lower urinary tract symptoms. 7. Rule out neurogenic bladder. 8. Probable cystocele history. 9. Rule out cystitis. 10. Renal cyst. PLAN AND DISCUSSION: Again as noted above, the patient has clinical findings consistent with pyuria and possible pyelonephritis versus cystitis. She did have some flank pain, which is now improved. She does have some hydronephrosis on the right side without obvious etiology without dilation of the ureter. She may have some type of a chronic UPJ obstruction. She also had gross hematuria which has resolved. At this time, I would recommend to continue with antibiotics as ordered. I will follow up on any cultures if available. She seems to be doing fairly well clinically at this point and I do not think there is any urgent need for diversion of the kidney with a nephrostomy or stent. She is afebrile again and without a white count. I would continue with antibiotics as ordered. At some point, I will repeat imaging studies and if she has persistent hydronephrosis, then she can have retrograde study on an elective basis for further evaluation. Thank you for this consultation. Shai Hamlin M.D. DR: GIOVANNY JOB#: [id number] CC:
[2020-01-08] VITALS: BP 138/72
[2020-01-08 04:00] VITALS: BP 140/68
[2020-01-08] MEDS: Levothyroxine 25mcg tab ORAL SCH (05:55)
[2020-01-08] MEDS: NovoLOG Insulin Flexpen SUBQ SCH ×4 (05:56→20:43)
[2020-01-08 06:09] LABS: BASOPHILS % (AUTO) 1.3 % (0.0-2.0); EOSINOPHILS % (AUTO) 1.7 % (0.0-3.0); HEMATOCRIT 30.2 % (37.0-47.0); HEMOGLOBIN 10.3 G/DL (12.0-16.0); LYMPHOCYTES % (AUTO) 49.2 % (20.0-45.0); MEAN CORPUSCULAR VOLUME 89 FL (80-99); MONOCYTES % (AUTO) 9.5 % (1.0-10.0); NEUTROPHILS % (AUTO) 38.4 % (45.0-75.0); PLATELET COUNT 174 K/UL (150-450); RED CELL DISTRIBUTION WIDTH 11.7 % (11.6-14.8)
[2020-01-08 06:36] LABS: ANION GAP 7 mmol/L (5-15); BLOOD UREA NITROGEN 12 mg/dL (7-18); CALCIUM 8.2 MG/DL (8.5-10.1); CARBON DIOXIDE 27 MMOL/L (21-32); CHLORIDE 101 MMOL/L (98-107); CREATININE 0.5 MG/DL (0.55-1.30); POTASSIUM 4.1 MMOL/L (3.5-5.1); SODIUM 135 MMOL/L (136-145)
[2020-01-08 08:00] VITALS: BP 134/60
--- NOTE | 2020-01-08 08:00 | Urology Progress Note ---
Assessment/Plan Status: stable Assessment/Plan: 1. Right-sided hydronephrosis. 2. Possible pyelonephritis. 3. Pyuria. 4. Hematuria. 5. Proteinuria. 6. Lower urinary tract symptoms. 7. Rule out neurogenic bladder. 8. Probable cystocele history. 9. Rule out cystitis. 10. Renal cyst. monitor clinically abx as ordered f/u on cx's repeat imaging or retrograde study at some point check PVR Subjective Allergies: Coded Allergies: ASPIRIN (Verified Allergy, Unknown, 05/05/17) CODEINE (Verified Allergy, Unknown, 05/05/17) Uncoded Allergies: CODEINE,ASPIRIN, (Allergy, Unknown, 10/08/16) Subjective all noted, feels fair vague lower abdominal pain, no flank pain Objective Last 24 Hour Vital Signs Date Time Temp Pulse Resp B/P (MAP) Pulse Ox O2 Delivery O2 Flow Rate FiO2 01/08/20 04:00 97.3 68 19 140/68 (92) 95 01/08/20 00:00 97.5 74 18 138/72 (94) 100 01/07/20 22:32 77 19 145/78 99 01/07/20 22:02 77 19 145/78 99 01/07/20 21:00 Room Air 01/07/20 20:00 98.2 77 19 145/78 (100) 99 01/07/20 16:00 97.2 70 21 128/74 (92) 100 01/07/20 12:00 97.8 72 18 119/68 (85) 97 01/07/20 09:00 Room Air 01/07/20 08:00 98.1 69 18 125/65 (85) 98 Intake and Output 01/07/20 01/08/20 19:00 07:00 Intake Total 720 ml Balance 720 ml Intake Oral 720 ml # Voids 4 Microbiology Date/Time Source Procedure Growth Status 01/06/20 16:15 Blood Blood Culture - Preliminary NO GROWTH AFTER 24 HOURS Resulted Current Medications Medications (Trade) Dose Ordered Sig/Ida Route PRN Reason Start Time Stop Time Status Last Admin Dose Admin Acetaminophen (Tylenol) 650 mg Q4H PRN ORAL Mild Pain (Pain Scale 1-3) 01/06/20 14:30 02/05/20 14:29 01/06/20 22:31 Atorvastatin Calcium (Lipitor) 20 mg BEDTIME ORAL 01/06/20 21:00 12/6/20 20:59 01/07/20 21:00 Ceftriaxone Sodium 2 gm/ Dextrose 55 ml @ 110 mls/hr Q24H IVPB 01/07/20 14:00 01/14/20 13:59 01/07/20 13:07 Dextrose (Dextrose 50%) 25 ml Q30M PRN IV Hypoglycemia 01/06/20 14:30 04/05/20 14:29 Dextrose (Dextrose 50%) 50 ml Q30M PRN IV Hypoglycemia 01/06/20 14:30 04/05/20 14:29 Duloxetine HCl (Cymbalta) 60 mg DAILY ORAL 01/07/20 09:00 04/06/20 08:59 01/07/20 08:34 Gabapentin (Neurontin) 300 mg BEDTIME ORAL 01/06/20 21:00 02/05/20 20:59 01/07/20 21:00 Insulin Aspart (NovoLOG) BEFORE MEALS AND HS SUBQ 01/06/20 16:30 04/05/20 16:29 01/06/20 20:46 Ketorolac Tromethamine (Toradol 30mg) 15 mg Q6H PRN IV Breakthrough Pain 01/06/20 14:30 01/11/20 14:29 01/07/20 23:15 Levothyroxine Sodium (Synthroid) 37.5 mcg DAILY@0630 ORAL 01/07/20 06:30 02/06/20 06:29 01/08/20 05:55 Lorazepam (Ativan) 0.5 mg Q12H PRN ORAL For Anxiety 01/07/20 16:45 01/14/20 16:44 01/07/20 22:02 Metoprolol Succinate (Toprol XL) 25 mg DAILY ORAL 01/08/20 09:00 04/07/20 08:59 Pantoprazole (Protonix) 40 mg DAILY ORAL 01/07/20 09:00 02/06/20 08:59 01/07/20 08:34 Polyethylene Glycol (Miralax) 17 gm HSPRN PRN ORAL Constipation 01/06/20 14:30 02/05/20 14:29 01/07/20 22:02 Laboratory Tests 01/07/20 09:10: White Blood Count 7.8, Red Blood Count 3.69L, Hemoglobin 11.1L, Hematocrit 33.3L , Mean Corpuscular Volume 90, Mean Corpuscular Hemoglobin 30.0, Mean Corpuscular Hemoglobin Concent 33.2, Red Cell Distribution Width 12.5, Platelet Count 173, Mean Platelet Volume 8.5, Neutrophils (%) (Auto) 60.4, Lymphocytes (% ) (Auto) 31.7, Monocytes (%) (Auto) 6.7, Eosinophils (%) (Auto) 0.7, Basophils ( %) (Auto) 0.6, Sodium Level 137, Potassium Level 4.3, Chloride Level 101, Carbon Dioxide Level 27, Anion Gap 9, Blood Urea Nitrogen 13, Creatinine 0.5L, Estimat Glomerular Filtration Rate > 60, Glucose Level 190H, Calcium Level 8.9 01/08/20 04:55: White Blood Count 6.0, Red Blood Count 3.40L, Hemoglobin 10.3L, Hematocrit 30.2L , Mean Corpuscular Volume 89, Mean Corpuscular Hemoglobin 30.2, Mean Corpuscular Hemoglobin Concent 33.9, Red Cell Distribution Width 11.7, Platelet Count 174, Mean Platelet Volume 9.3, Neutrophils (%) (Auto) 38.4L, Lymphocytes ( %) (Auto) 49.2H, Monocytes (%) (Auto) 9.5, Eosinophils (%) (Auto) 1.7, Basophils (%) (Auto) 1.3, Sodium Level 135L, Potassium Level 4.1, Chloride Level 101, Carbon Dioxide Level 27, Anion Gap 7, Blood Urea Nitrogen 12, Creatinine 0.5L, Estimat Glomerular Filtration Rate > 60, Glucose Level 120H, Calcium Level 8.2L Height (Feet): 5 Height (Inches): 2.00 Weight (Pounds): 145 Objective exam stable minimal CVAT Shai Hamlin MD Jan 08, 2020 08:00
--- NOTE | 2020-01-08 08:07 | General Progress Note ---
Assessment/Plan Status: stable Assessment/Plan: 74F with PMHx of Non-insulin dependent T2DM, HTN, HLD, and GERD admitted for pyelonephritis. #Pyelonephritis R CVA tenderness and UA consistent with pyelonephritis. CT abdomen with hydronephrosis, with stranding but no stone causing obstruction. - cont to monitor on med surg - Encourage PO fluids, s/p IV NS 1.5L - pain control - BCx no growth on day 1 - UCx pending - Abx - cont Rocephen - ID consulted, recs appreciated #Hydronephrosis likely 2/2 to above, CT abd on admission with no stones appreciated - Renal US consistent with Right [place] - cont management as above - monitor I's & O's - f/u PVR - Urology consulted, recs appreciated #Non-insulin dependent T2DM - SSI while inpatient - Resume metformin on dc #HTN - Continue home metoprolol #HLD - Continue Statin #Hypothyroidism - Continue Synthyroid #Diabetic Neuropathy - Continue cymalta and gabapentin #GERD - Continue ppi FEN: -Carb consistent - SCDs Full Code Time spent on encounter: 36 mins, 25 mins on counseling, coordination of care. POC d/w at length w/pt's dtr, [place], RN, ID and Urology. Time of note doesn't reflect time of encounter. Subjective Allergies: Coded Allergies: ASPIRIN (Verified Allergy, Unknown, 05/05/17) CODEINE (Verified Allergy, Unknown, 05/05/17) Uncoded Allergies: CODEINE,ASPIRIN, (Allergy, Unknown, 10/08/16) Subjective No acute events overnight. Pt notes right flank pain improved w/current pain medications. Pt eager to go home. Pt otherwise denies f/c, N/V, CP, SOB, abd pain at this time. D/w Pt's dtr, [place], POC, pt and dtr expressed understanding need to wait for urine cx results. Objective Last 24 Hour Vital Signs Date Time Temp Pulse Resp B/P (MAP) Pulse Ox O2 Delivery O2 Flow Rate FiO2 01/08/20 04:00 97.3 68 19 140/68 (92) 95 01/08/20 00:00 97.5 74 18 138/72 (94) 100 01/07/20 22:32 77 19 145/78 99 9/8/20 22:02 77 19 145/78 99 01/07/20 21:00 Room Air 01/07/20 20:00 98.2 77 19 145/78 (100) 99 01/07/20 16:00 97.2 70 21 128/74 (92) 100 01/07/20 12:00 97.8 72 18 119/68 (85) 97 01/07/20 09:00 Room Air Intake and Output 01/07/20 01/08/20 19:00 07:00 Intake Total 720 ml Balance 720 ml Intake Oral 720 ml # Voids 4 Laboratory Tests 01/07/20 09:10: White Blood Count 7.8, Red Blood Count 3.69L, Hemoglobin 11.1L, Hematocrit 33.3L , Mean Corpuscular Volume 90, Mean Corpuscular Hemoglobin 30.0, Mean Corpuscular Hemoglobin Concent 33.2, Red Cell Distribution Width 12.5, Platelet Count 173, Mean Platelet Volume 8.5, Neutrophils (%) (Auto) 60.4, Lymphocytes (% ) (Auto) 31.7, Monocytes (%) (Auto) 6.7, Eosinophils (%) (Auto) 0.7, Basophils ( %) (Auto) 0.6, Sodium Level 137, Potassium Level 4.3, Chloride Level 101, Carbon Dioxide Level 27, Anion Gap 9, Blood Urea Nitrogen 13, Creatinine 0.5L, Estimat Glomerular Filtration Rate > 60, Glucose Level 190H, Calcium Level 8.9 01/08/20 04:55: White Blood Count 6.0, Red Blood Count 3.40L, Hemoglobin 10.3L, Hematocrit 30.2L , Mean Corpuscular Volume 89, Mean Corpuscular Hemoglobin 30.2, Mean Corpuscular Hemoglobin Concent 33.9, Red Cell Distribution Width 11.7, Platelet Count 174, Mean Platelet Volume 9.3, Neutrophils (%) (Auto) 38.4L, Lymphocytes ( %) (Auto) 49.2H, Monocytes (%) (Auto) 9.5, Eosinophils (%) (Auto) 1.7, Basophils (%) (Auto) 1.3, Sodium Level 135L, Potassium Level 4.1, Chloride Level 101, Carbon Dioxide Level 27, Anion Gap 7, Blood Urea Nitrogen 12, Creatinine 0.5L, Estimat Glomerular Filtration Rate > 60, Glucose Level 120H, Calcium Level 8.2L Height (Feet): 5 Height (Inches): 2.00 Weight (Pounds): 145 Objective General Appearance: no apparent distress, alert HEENT: normocephalic, atraumatic, EOMi, MMM Neck: non-tender, supple Respiratory/Chest: lungs clear, normal breath sounds Cardiovascular/Chest: normal rate, regular rhythm Abdomen: normal bowel sounds, no guarding/rebound or distension, + R CVA Tenderness, mild, improved compared to day prior Extremities: normal range of motion, other Skin Exam: warm/dry Neurologic: behavioral health care manager II-XII grossly normal Michel Goddard M.D. Jan 08, 2020 08:07
[2020-01-08] MEDS: Metoprolol Succinate XL 25mg tab ORAL SCH (09:30)
[2020-01-08 12:00] VITALS: BP 137/64
[2020-01-08] MEDS: cefTRIAXone 2 GM in D5W 55 ML IVPB SCH (13:09)
[2020-01-08 16:00] VITALS: BP 136/69
--- NOTE | 2020-01-08 16:01 | Infectious Diseases Prog Note ---
Assessment/Plan Assessment/Plan A) 1) gram neg uti/pyelonephritis, cva pain 2) pmh noted 3) allergies - asa, codeine P) 1) ceftriaxone 2) check urine culture final 3) will f/u 4) d/w Dr. Goddard Subjective Constitutional: Denies: fever HEENT: Denies: congestion Respiratory: Denies: shortness of breath Cardiovascular: Denies: chest pain Gastrointestinal/Abdominal: Denies: nausea, vomiting Neurologic: Denies: headache Skin: Denies: rash Allergies: Coded Allergies: ASPIRIN (Verified Allergy, Unknown, 05/05/17) CODEINE (Verified Allergy, Unknown, 05/05/17) Uncoded Allergies: CODEINE,ASPIRIN, (Allergy, Unknown, 10/08/16) Objective Last 24 Hour Vital Signs Date Time Temp Pulse Resp B/P (MAP) Pulse Ox O2 Delivery O2 Flow Rate FiO2 01/08/20 12:00 97.5 70 18 137/64 (88) 98 01/08/20 09:30 68 134/60 01/08/20 09:00 Room Air 01/08/20 08:00 97.8 68 18 134/60 (84) 99 01/08/20 04:00 97.3 68 19 140/68 (92) 95 01/08/20 00:00 97.5 74 18 138/72 (94) 100 01/07/20 22:32 77 19 145/78 99 01/07/20 22:02 77 19 145/78 99 01/07/20 21:00 Room Air 01/07/20 20:00 98.2 77 19 145/78 (100) 99 01/07/20 16:00 97.2 70 21 128/74 (92) 100 Height (Feet): 5 Height (Inches): 2.00 Weight (Pounds): 145 General Appearance: no acute distress HEENT: normocephalic, atraumatic, anicteric Respiratory/Chest: lungs clear, normal breath sounds, no respiratory distress Cardiovascular: normal rate, regular rhythm, no gallop/murmur Abdomen: normal bowel sounds, soft, non tender, no organomegaly Genitourinary: other - less left cva pain Microbiology Date/Time Source Procedure Growth Status 01/06/20 16:15 Blood Blood Culture - Preliminary NO GROWTH AFTER 24 HOURS Resulted 01/06/20 16:00 Blood Blood Culture - Preliminary NO GROWTH AFTER 24 HOURS Resulted 01/06/20 10:20 Urine,Clean Catch Urine Culture - Preliminary Gram Negative Bacillus 1 Resulted Laboratory Tests Test 01/08/20 04:55 White Blood Count 6.0 K/UL (4.8-10.8) Red Blood Count 3.40 M/UL (4.20-5.40) L Hemoglobin 10.3 G/DL (12.0-16.0) L Hematocrit 30.2 % (37.0-47.0) L Mean Corpuscular Volume 89 FL (80-99) Mean Corpuscular Hemoglobin 30.2 PG (27.0-31.0) Mean Corpuscular Hemoglobin Concent 33.9 G/DL (32.0-36.0) Red Cell Distribution Width 11.7 % (11.6-14.8) Platelet Count 174 K/UL (150-450) Mean Platelet Volume 9.3 FL (6.5-10.1) Neutrophils (%) (Auto) 38.4 % (45.0-75.0) L Lymphocytes (%) (Auto) 49.2 % (20.0-45.0) H Monocytes (%) (Auto) 9.5 % (1.0-10.0) Eosinophils (%) (Auto) 1.7 % (0.0-3.0) Basophils (%) (Auto) 1.3 % (0.0-2.0) Sodium Level 135 MMOL/L (136-145) L Potassium Level 4.1 MMOL/L (3.5-5.1) Chloride Level 101 MMOL/L (98-107) Carbon Dioxide Level 27 MMOL/L (21-32) Anion Gap 7 mmol/L (5-15) Blood Urea Nitrogen 12 mg/dL (7-18) Creatinine 0.5 MG/DL (0.55-1.30) L Estimat Glomerular Filtration Rate > 60 mL/min (>60) Glucose Level 120 MG/DL (74-106) H Calcium Level 8.2 MG/DL (8.5-10.1) L Current Medications Medications (Trade) Dose Ordered Sig/Ida Route PRN Reason Start Time Stop Time Status Last Admin Dose Admin Acetaminophen (Tylenol) 650 mg Q4H PRN ORAL Mild Pain (Pain Scale 1-3) 01/06/20 14:30 10/7/20 14:29 01/06/20 22:31 Atorvastatin Calcium (Lipitor) 20 mg BEDTIME ORAL 01/06/20 21:00 04/05/20 20:59 01/07/20 21:00 Ceftriaxone Sodium 2 gm/ Dextrose 55 ml @ 110 mls/hr Q24H IVPB 01/07/20 14:00 01/14/20 13:59 01/08/20 13:09 Dextrose (Dextrose 50%) 25 ml Q30M PRN IV Hypoglycemia 01/06/20 14:30 04/05/20 14:29 Dextrose (Dextrose 50%) 50 ml Q30M PRN IV Hypoglycemia 01/06/20 14:30 04/05/20 14:29 Duloxetine HCl (Cymbalta) 60 mg DAILY ORAL 01/07/20 09:00 04/06/20 08:59 01/08/20 09:30 Gabapentin (Neurontin) 300 mg BEDTIME ORAL 01/06/20 21:00 02/05/20 20:59 01/07/20 21:00 Insulin Aspart (NovoLOG) BEFORE MEALS AND HS SUBQ 01/06/20 16:30 04/05/20 16:29 01/06/20 20:46 Ketorolac Tromethamine (Toradol 30mg) 15 mg Q6H PRN IV Breakthrough Pain 01/06/20 14:30 01/11/20 14:29 01/07/20 23:15 Levothyroxine Sodium (Synthroid) 37.5 mcg DAILY@0630 ORAL 01/07/20 06:30 02/06/20 06:29 01/08/20 05:55 Lorazepam (Ativan) 0.5 mg Q12H PRN ORAL For Anxiety 01/07/20 16:45 01/14/20 16:44 01/07/20 22:02 Metoprolol Succinate (Toprol XL) 25 mg DAILY ORAL 01/08/20 09:00 04/07/20 08:59 01/08/20 09:30 Pantoprazole (Protonix) 40 mg DAILY ORAL 01/07/20 09:00 02/06/20 08:59 01/08/20 09:30 Polyethylene Glycol (Miralax) 17 gm HSPRN PRN ORAL Constipation 01/06/20 14:30 02/05/20 14:29 01/07/20 22:02 Yonathan Thompson MD Jan 08, 2020 16:01
--- NOTE | 2020-01-08 19:14 | Consultation ---
DATE OF CONSULTATION: 01/08/2020 INFECTIOUS DISEASE CONSULTATION CONSULTING PHYSICIAN: Yonathan Thompson MD. ATTENDING PHYSICIAN: Michel Goddard DO. REFERRING PHYSICIAN: Michel Goddard DO. REASON FOR CONSULTATION: Complicated urinary tract infection with pyelonephritis secondary to gram-negative organisms. CHIEF COMPLAINT: Patient's chief complaint coming in to the hospital is pyelonephritis. HISTORY OF PRESENT ILLNESS: This is a very pleasant 74-year-old female who comes in to [facility] with left CVA tenderness and also I believe abdominal pain. A CT scan of the abdomen and pelvis showed that she had severe right hydronephrosis and bladder with surrounding fat stranding, which could be cystitis. I believe she had CVA pain also which she does have currently. Urinalysis was suggestive of urinary tract infection. She had a mild leukocytosis. UA had too many to count white blood cells. Because of the CVA tenderness, she likely has the complicated UTI and pyelonephritis. Urine culture so far with gram-negative organisms, identification is still pending. She has had the pain for at least several days. MAR was noted. Orders were noted. Notes and records reviewed. Case discussed with the patient and the RN and also patient's daughter yesterday when I saw the patient also. Patient will be continued on Rocephin or ceftriaxone for now. REVIEW OF SYSTEMS: CONSTITUTIONAL: Patient has no fever, chills, or night sweats. No weight loss mentioned. HEAD AND NECK: No headache, neck stiffness, thrush, or dysphagia. CARDIAC: No chest pain or palpitations. GASTROINTESTINAL: No nausea or vomiting. She has some abdominal discomfort, but nothing currently. PULMONARY: No congestion or shortness of breath. Mild secretions. SKIN: No rash or itching. EXTREMITIES: No extremity pain. NEUROLOGIC: No seizures. GENITOURINARY: She has no Murray. She has some CVA tenderness. No hematuria, maybe some dysuria and frequency. PAST MEDICAL HISTORY: History of hyperlipidemia or dyslipidemia, history of hypothyroidism, hypertension, diabetes mellitus. ALLERGIES: She is allergic to aspirin, codeine. No penicillin allergies. SOCIAL HISTORY: Negative for smoking, alcohol, or drug abuse. FAMILY HISTORY: Noncontributory. Negative for tuberculosis or cancer. MEDICATIONS: Upon reviewing the MAR, she is on following medications. She is on metoprolol, lorazepam, ceftriaxone, pantoprazole, duloxetine, levothyroxine, atorvastatin, gabapentin, insulin, acetaminophen, IV fluids. Outside medications noted and reconciliated. PHYSICAL EXAMINATION: VS - T- 97.5, BP-13/60, P-70, RR-14, sat-98% GENERAL: Nontoxic looking, nonseptic looking. HEAD AND NECK: Oral exam, no thrush. Eye exam, no icterus. Normocephalic. Neck is supple. No JVD. HEART: Regular. No gallop or murmur. No friction rub. ABDOMEN: Soft. Positive bowel sounds. Nontender. LUNGS: Clear bilaterally. No rhonchi or rales. SKIN: No rash or dermatitis. MUSCULOSKELETAL: No evidence of septic arthritis or effusions. Legs are without cellulitis. PERIPHERAL VASCULAR: No cyanosis or gangrene. GENITOURINARY: No Murray. She does have cva tenderness - improved today versus yesterday. LINE SITES: Without phlebitis. NEUROLOGIC: Intact. Nonfocal. Alert and oriented x3. LABORATORY DATA: UA had too many to count white blood cells, too many to count rbc's, and 3+ leukocyte esterase. Creatinine 0.5. LFTs noted normal. White count on admission 11.3, hemoglobin 12.4. Currently white count 6.0, hemoglobin 10.3. Cultures, blood cultures are negative to date. Urine culture with gram-negative bacilli. We will await identification of the organism and sensitivities. IMAGING STUDIES: CT scan of the abdomen and pelvis was consistent with the following. It had severe right hydronephrosis and it had findings consistent with cystitis with bladder wall thickening. Renal ultrasound showed right hydronephrosis. ASSESSMENT AND PLAN: 1. Patient has a complicated gram-negative UTI with pyelonephritis with CVA tenderness. She also has hydronephrosis on imaging. At this time, we will continue Rocephin, which has a gram-negative coverage. Continue Rocephin for complicated gram-negative UTI/pyelonephritis and check urine culture. Once urine culture is back, then can change to oral antibiotics hopefully and for the remainder course of the treatment. 2. Patient has hypothyroidism. Continue thyroid supplementation. 3. Diabetes - tx per primary care team 4. Hypertension - tx per primary care team 5. Blood sugar and blood pressure treatment per primary care team for diabetes and hypertension. 6. Thyroid supplementation for hypothyroid. 8. Allergies to aspirin, codeine. 9. Social history is negative. 10. Family history - non- contributory 11. mar noted 12. d/w RN 13. continue treatment per primary and consultants Yonathan Thompson M.D. DR: STEVEN JOB#: [id number] CC: RICH
[2020-01-08 20:00] VITALS: BP 152/68
[2020-01-08] MEDS: Atorvastatin 20mg tab ORAL SCH (20:37)
[2020-01-08] MEDS: Miralax 17gm pkt ORAL PRN (20:46)
[2020-01-09] VITALS: BP 140/63
[2020-01-09 04:00] VITALS: BP 130/73
[2020-01-09] MEDS: NovoLOG Insulin Flexpen SUBQ SCH (06:27)
[2020-01-09] MEDS: Levothyroxine 25mcg tab ORAL SCH (06:30)
[2020-01-09 06:34] LABS: BASOPHILS % (AUTO) 1.3 % (0.0-2.0); EOSINOPHILS % (AUTO) 2.3 % (0.0-3.0); HEMATOCRIT 33.1 % (37.0-47.0); HEMOGLOBIN 11.1 G/DL (12.0-16.0); LYMPHOCYTES % (AUTO) 47.2 % (20.0-45.0); MEAN CORPUSCULAR VOLUME 90 FL (80-99); MONOCYTES % (AUTO) 10.3 % (1.0-10.0); NEUTROPHILS % (AUTO) 38.9 % (45.0-75.0); PLATELET COUNT 198 K/UL (150-450); WHITE BLOOD COUNT 5.6 K/UL (4.8-10.8)
[2020-01-09 06:54] LABS: ANION GAP 8 mmol/L (5-15); BLOOD UREA NITROGEN 10 mg/dL (7-18); CALCIUM 8.8 MG/DL (8.5-10.1); CARBON DIOXIDE 28 MMOL/L (21-32); CHLORIDE 102 MMOL/L (98-107); CREATININE 0.4 MG/DL (0.55-1.30); POTASSIUM 4.4 MMOL/L (3.5-5.1); SODIUM 138 MMOL/L (136-145)
--- NOTE | 2020-01-09 07:49 | Urology Progress Note ---
Assessment/Plan Status: stable Assessment/Plan: 1. Right-sided hydronephrosis. 2. Possible pyelonephritis. 3. Pyuria. 4. Hematuria. 5. Proteinuria. 6. Lower urinary tract symptoms. 7. Rule out neurogenic bladder. 8. Probable cystocele history. 9. Rule out cystitis. 10. Renal cyst. monitor clinically abx as ordered f/u on blood cx repeat imaging or retrograde study at some point cysto as outpt d/w pt fully Subjective Allergies: Coded Allergies: ASPIRIN (Verified Allergy, Unknown, 05/05/17) CODEINE (Verified Allergy, Unknown, 05/05/17) Uncoded Allergies: CODEINE,ASPIRIN, (Allergy, Unknown, 10/08/16) Subjective all noted, feels fair no flank pain, no fevers PVR 73 cc Objective Last 24 Hour Vital Signs Date Time Temp Pulse Resp B/P (MAP) Pulse Ox O2 Delivery O2 Flow Rate FiO2 01/09/20 04:00 98.4 63 18 130/73 (92) 96 01/09/20 00:00 97.2 60 18 140/63 (88) 95 01/08/20 21:00 Room Air 01/08/20 20:00 97.8 68 18 152/68 (96) 96 01/08/20 16:00 97.2 78 18 136/69 (91) 99 01/08/20 12:00 97.5 70 18 137/64 (88) 98 01/08/20 09:30 68 134/60 01/08/20 09:00 Room Air 01/08/20 08:00 97.8 68 18 134/60 (84) 99 Microbiology Date/Time Source Procedure Growth Status 01/06/20 16:15 Blood Blood Culture - Preliminary NO GROWTH AFTER 48 HOURS Resulted 01/06/20 10:20 Urine,Clean Catch Urine Culture - Final Proteus Mirabilis Complete Current Medications Medications (Trade) Dose Ordered Sig/Ida Route PRN Reason Start Time Stop Time Status Last Admin Dose Admin Acetaminophen (Tylenol) 650 mg Q4H PRN ORAL Mild Pain (Pain Scale 1-3) 01/06/20 14:30 02/05/20 14:29 01/08/20 20:37 Atorvastatin Calcium (Lipitor) 20 mg BEDTIME ORAL 01/06/20 21:00 04/05/20 20:59 01/08/20 20:37 Ceftriaxone Sodium 2 gm/ Dextrose 55 ml @ 110 mls/hr Q24H IVPB 01/07/20 14:00 01/14/20 13:59 01/08/20 13:09 Dextrose (Dextrose 50%) 25 ml Q30M PRN IV Hypoglycemia 01/06/20 14:30 04/05/20 14:29 Dextrose (Dextrose 50%) 50 ml Q30M PRN IV Hypoglycemia 01/06/20 14:30 04/05/20 14:29 Duloxetine HCl (Cymbalta) 60 mg DAILY ORAL 01/07/20 09:00 04/06/20 08:59 01/08/20 09:30 Gabapentin (Neurontin) 300 mg BEDTIME ORAL 01/06/20 21:00 02/05/20 20:59 01/08/20 20:37 Insulin Aspart (NovoLOG) BEFORE MEALS AND HS SUBQ 01/06/20 16:30 04/05/20 16:29 01/08/20 20:43 Ketorolac Tromethamine (Toradol 30mg) 15 mg Q6H PRN IV Breakthrough Pain 01/06/20 14:30 01/11/20 14:29 01/07/20 23:15 Levothyroxine Sodium (Synthroid) 37.5 mcg DAILY@0630 ORAL 01/07/20 06:30 02/06/20 06:29 01/09/20 06:30 Lorazepam (Ativan) 0.5 mg Q12H PRN ORAL For Anxiety 01/07/20 16:45 01/14/20 16:44 01/07/20 22:02 Metoprolol Succinate (Toprol XL) 25 mg DAILY ORAL 01/08/20 09:00 04/07/20 08:59 01/08/20 09:30 Pantoprazole (Protonix) 40 mg DAILY ORAL 01/07/20 09:00 02/06/20 08:59 01/08/20 09:30 Polyethylene Glycol (Miralax) 17 gm HSPRN PRN ORAL Constipation 01/06/20 14:30 02/05/20 14:29 01/08/20 20:46 Laboratory Tests 01/09/20 05:35: White Blood Count 5.6, Red Blood Count 3.70L, Hemoglobin 11.1L, Hematocrit 33.1L , Mean Corpuscular Volume 90, Mean Corpuscular Hemoglobin 29.9, Mean Corpuscular Hemoglobin Concent 33.4, Red Cell Distribution Width 12.0, Platelet Count 198, Mean Platelet Volume 8.3, Neutrophils (%) (Auto) 38.9L, Lymphocytes ( %) (Auto) 47.2H, Monocytes (%) (Auto) 10.3H, Eosinophils (%) (Auto) 2.3, Basophils (%) (Auto) 1.3, Sodium Level 138, Potassium Level 4.4, Chloride Level 102, Carbon Dioxide Level 28, Anion Gap 8, Blood Urea Nitrogen 10, Creatinine 0.4L, Estimat Glomerular Filtration Rate > 60, Glucose Level 134H, Calcium Level 8.8 Height (Feet): 5 Height (Inches): 2.00 Weight (Pounds): 145 Objective exam stable minimal CVAT Shai Hamlin MD Jan 09, 2020 07:49
[2020-01-09 08:00] VITALS: BP 132/61
--- NOTE | 2020-01-09 08:09 | Discharge Summary ---
Discharge Summary Hospital Course Date of Admission Jan 06, 2020 at 13:07 Date of Discharge 01/09/2020, 11:00 AM Admitting Diagnosis Pyelonephritis HPI Berenice Molina is a 74 year old female who was admitted on Jan 06, 2020 at 13:07 for Pyelonephritis Hospital Course 74F with PMHx of Non-insulin dependent T2DM, HTN, HLD, and GERD admitted for pyelonephritis. CT abd w/no stones, right hydronephrosis. Renal US consistent with right hydro. Urology consulted who stated to cont current management, and to closely follow up as o/p. On admission, Pt was noted to have CVA tenderness, was improved with pain medications and IVF. Pt started on empiric CTX. BCx were negative and Urine Cx positive for proteus with multiple susceptibilities. Findings were reviewed w/ID and pt was d/c home on Keflex 500 QID x7 days. Pain improved and pt notes she does not want anything for pain at this time. Pt to be d/c home in stable condition with instructions to f/u w/PCP as o/p. D/C diagnosis: #Pyelonephritis #Hydronephrosis, Right #Non-insulin dependent T2DM #HTN #HLD #Hypothyroidism #Diabetic Neuropathy #GERD D/c planning 35 mins. Time of note doesn't reflect time of encounter. Discharge Medications New Medications: Cephalexin* (Keflex*) 500 Mg Capsule 500 MG ORAL EVERY 6 HOURS for 7 Days, #28 CAP Continued Medications: Atorvastatin (Lipitor) 80 Mg Tab 20 MG PO DAILY for , #10 TAB (This prescription has been renewed) Take 1 tablet by mouth every day. Dexlansoprazole (Dexilant) 30 Mg Miguel.mp 30 MG PO DAILY (This prescription has been renewed) Duloxetine Hcl* (Cymbalta*) 60 Mg Capsule.dr 60 MG ORAL DAILY for , CAP (This prescription has been renewed) Escitalopram Oxalate* (Lexapro*) 20 Mg Tablet 20 MG PO DAILY, #10 TAB (This prescription has been renewed) Take 1 tablet by mouth every day. Estrogens Conjugated (Premarin) 45 Gm Cr 45 GM PV (This prescription has been renewed) Fexofenadine/Pseudoephedrine (Angela-D 24 Hour Tablet) 1 Each Tab.er.24h 1 EACH PO DAILY for , TAB (This prescription has been renewed) Gabapentin* (Gabapentin*) 100 Mg Capsule 300 MG ORAL DAILY for , CAP (This prescription has been renewed) Levothyroxine Sodium (Synthroid) 50 Mcg Tab 37.5 MCG PO DAILY for , #10 TAB (This prescription has been renewed) Take 1 tablet by mouth every day. Metformin Hcl* (Glucophage*) 500 Mg Tablet 500 MG PO TID, #10 TAB (This prescription has been renewed) Take 1 tablet by mouth every day. Metoprolol Tartrate* (Metoprolol Tartrate*) 25 Mg Tablet 25 MG PO DAILY (This prescription has been renewed) Montelukast Sodium* (Singulair*) 10 Mg Tablet 10 MG ORAL DAILY for , TAB (This prescription has been renewed) Pantoprazole* (Pantoprazole*) 40 Mg Tablet.dr 40 MG ORAL DAILY for , TAB (This prescription has been renewed) Sitagliptin Phos/Metformin Hcl (Janumet 50-500 Mg Tablet) 1 Each Tablet 1 EACH PO (This prescription has been renewed) Tamsulosin HCl (Flomax) 0.4 Mg Cap.er.24h 0.4 MG ORAL DAILY for , CAP (This prescription has been renewed) Discontinued Medications: Cephalexin* (Keflex*) 500 Mg Capsule 500 MG ORAL Q6H, #28 CAP 0 Refills Metformin Hcl* (Glucophage*) 500 Mg Tablet 500 MG PO BID for , #10 TAB Take 1 tablet by mouth every day. Discharge Discharge Vital Signs Last Vital Signs Date Time Temp Pulse Resp B/P (MAP) Pulse Ox O2 Delivery O2 Flow Rate FiO2 01/09/20 04:00 98.4 63 18 130/73 (92) 96 01/08/20 21:00 Room Air Discharge Disposition Patient was discharged to home. Michel Goddard M.D. Jan 09, 2020 08:09
[2020-01-09] MEDS ORDERED: CEPHALEXIN500 MG ORAL (08:44)
[2020-01-09 09:11] VITALS: BP 125/70
[2020-01-09] MEDS: Metoprolol Succinate XL 25mg tab ORAL SCH (09:11)
== END 2020-01-09 11:45 | disposition home or self-care (01) | DRG 690 ==
LOC: EMR 10:20 → EDBEDREQ 12:47 → 4E 13:07
DX: N12 Tubulo-interstitial nephritis, not specified as acute or chronic (principal); N13.30 Unspecified hydronephrosis; E11.40 Type 2 diabetes mellitus with diabetic neuropathy, unspecified; I10 Essential (primary) hypertension; K21.9 Gastro-esophageal reflux disease without esophagitis; R31.9 Hematuria, unspecified; Z88.6 Allergy status to analgesic agent; E78.5 Hyperlipidemia, unspecified; Z87.891 Personal history of nicotine dependence; N28.1 Cyst of kidney, acquired; B96.89 Other specified bacterial agents as the cause of diseases classified elsewhere; E03.9 Hypothyroidism, unspecified
CPT/HCPCS: 36415; 74176; 76770; 80048; 80053; 81003; 82962; 83690; 85025; 85610; 85730; 86140; 87040; 87086; 87181; 96365; 96375; 99285; J1815; J7030